=== PATIENT | female | born 1945 | race Caucasian/White ===

== ENCOUNTER 2016-11-06 02:36 | Emergency (ER) | payer OTHER ==
[~2016-11-06] VITALS: Ht 149.9 cm; Wt 66.7 kg
[~2016-11-06 02:36] MED LIST: ALBU1AER9 PO; ARMOUR THYROID PO; ASPCH81X PO; CALC12502 PO; FENO145T26 PO; LANTANOPROST OPB; PRM/3 PO; PROG200C8 PO; SIMV20TA2 PO; VITAMIN D3 PO
[2016-11-06 02:45] VITALS: TEMP 36.9; Ht 149.9 cm; Wt 66.7 kg
--- NOTE | 2016-11-06 03:20 | EMERGENCY ROOM VISIT NOTE ---
History Report prepared by Alesha: Grace Gonzalez Under the Supervision of: Dr. Rafael Ag M.D. First contact with patient: 02:49 Chief Complaint: HYPERTENSION Stated Complaint: HIGH BLOOD PRISSURE 198/117 History of Present Illness The patient is a 71 year old female who presents to the Emergency Room with complaints of persistent hypertension for the past several hours. She is accompanied by her . She reports around 2130 last night, she checked her BP at home and it was 156/95. She tried to go to sleep, but woke up early in the morning and rechecked her BP and it was 180/100. Around 0200 she woke up again and it was 198/117. Since it was continuing to rise, she asked her to bring her to the ED. She is on daily medications for a history of hypertension and states she took them yesterday morning as scheduled. The patient states she also "just doesn't feel right". She reports she has been "shaking", which she last experienced when she had a , and she thinks was from anxiety. She denies any headache or instability with walking. She does admit to some recent salty meals with eating [employer] and sausage in the past few days. She admits to some abdominal discomfort earlier, but states it has mostly resolved. She no longer has her gallbladder. Source of History: patient Onset: past several hours Position: other (global) Timing: other (persistent) Modifying Factors (Worsening): eating (recent salty meals) Associated Symptoms: + abdominal pain, No headache Review of Systems See HPI for pertinent positives & negatives. A total of 10 systems reviewed and were otherwise negative. Past Medical & Surgical Medical Problems: (1) Hypertension Surgical Problems: (1) Previous delivery, delivered Social History Smoking Status: Former Smoker Alcohol Use: none Drug Use: none Marital Status: Housing Status: lives with family Occupation Status: retired Current/Historical Medications Scheduled Amlodipine (Norvasc), 2.5 MG PO DAILY Aspirin (Aspirin Ec), 81 MG PO DAILY Calcium W/ Vitamins D & K (Viactiv), 1 TAB PO DAILY Cholecalciferol (Vitamin D3), 5,000 UNIT PO 5XWK Latanoprost (Xalatan 0.005% Oph Pennie), 1 DROPS OPB HS Levothyroxine Sodium (Levothyroxine Sodium), 50 MCG PO DAILY Metoprolol Succinate (Metoprolol Succinate ER), 25 MG PO DAILY Scheduled PRN Albuterol Hfa (Ventolin Hfa), 2 PUFFS INH Q6H PRN for SOB/Wheezing Estrogens, Conjugated (Premarin), 1 APPLN PV 3XWK PRN for IRRITATION Allergies Coded Allergies: Adhesives (Verified Allergy, Mild, RASH, 11/06/16) Physical Exam Vital Signs Date Time Temp Pulse Resp B/P Pulse Ox O2 Delivery O2 Flow Rate FiO2 11/06/16 04:28 88 21 202/145 95 11/06/16 03:21 Room Air 11/06/16 03:21 100 11/06/16 03:21 Room Air 11/06/16 02:45 36.9 108 22 218/107 96 Room Air Physical Exam GENERAL: Patient is a healthy-appearing well-nourished HEAD: Normocephalic atraumatic EYES: Ocular movements intact pupils equal and react to light OROPHARYNX mucous membranes are moist no exudates present no erythema or edema present NECK: Supple no nuchal rigidity CHEST: Good equal expansion LUNGS: Clear and equal to auscultation CARDIAC: Normal S1 and S2 ABDOMEN: Soft nontender no guarding BACK: No CVA tenderness EXTREMITIES: No pain upon palpation normal muscle strength in all groups no clubbing cyanosis or edema NEURO: Patient is following commands is answering questions appropriately. Alert and oriented x3 Cranial Nerves 2-12 grossly intact Medical Decision & Procedures ER Provider Diagnostic Interpretation: This X-Ray was reviewed and interpreted by myself and the radiologist. CHEST X-RAY, 1 VIEW No evidence of pneumonia, congestion or pneumothorax. Laboratory Results 11/06/16 03:20 Red Blood Count 5.25, Mean Corpuscular Volume 87.2, Mean Corpuscular Hemoglobin 29.5, Mean Corpuscular Hemoglobin Concent 33.8, Mean Platelet Volume 11.0, Neutrophils (%) (Auto) 48.3, Lymphocytes (%) (Auto) 37.1, Monocytes (%) (Auto) 8.7, Eosinophils (%) (Auto) 4.8, Basophils (%) (Auto) 0.9, Neutrophils # (Auto) 4.16, Lymphocytes # (Auto) 3.20, Monocytes # (Auto) 0.75, Eosinophils # (Auto) 0.41, Basophils # (Auto) 0.08 11/06/16 03:20 Test 11/06/16 03:20 White Blood Count 8.62 K/uL (4.8-10.8) Red Blood Count 5.25 M/uL (4.2-5.4) Hemoglobin 15.5 g/dL (12.0-16.0) Hematocrit 45.8 % (37-47) Mean Corpuscular Volume 87.2 fL (80-100) Mean Corpuscular Hemoglobin 29.5 pg (25-34) Mean Corpuscular Hemoglobin Concent 33.8 g/dl (32-36) Platelet Count 241 K/uL (130-400) Mean Platelet Volume 11.0 fL (7.4-10.4) Neutrophils (%) (Auto) 48.3 % Lymphocytes (%) (Auto) 37.1 % Monocytes (%) (Auto) 8.7 % Eosinophils (%) (Auto) 4.8 % Basophils (%) (Auto) 0.9 % Neutrophils # (Auto) 4.16 K/uL (1.4-6.5) Lymphocytes # (Auto) 3.20 K/uL (1.2-3.4) Monocytes # (Auto) 0.75 K/uL (0.11-0.59) Eosinophils # (Auto) 0.41 K/uL (0-0.5) Basophils # (Auto) 0.08 K/uL (0-0.2) RDW Standard Deviation 45.5 fL (36.4-46.3) RDW Coefficient of Variation 14.2 % (11.5-14.5) Immature Granulocyte % (Auto) 0.2 % Immature Granulocyte # (Auto) 0.02 K/uL (0.00-0.02) Prothrombin Time 10.0 SECONDS (9.0-12.0) Prothromb Time International Ratio 0.9 (0.9-1.1) Activated Partial Thromboplast Time 25.0 SECONDS (21.0-31.0) Partial Thromboplastin Ratio 1.0 Urine Color YELLOW Urine Appearance CLEAR (CLEAR) Urine pH 5.5 (4.5-7.5) Urine Specific [place] 1.006 (1.000-1.030) Urine Protein NEG (NEG) Urine Glucose (UA) NEG (NEG) Urine Ketones NEG (NEG) Urine Occult Blood NEG (NEG) Urine Nitrite NEG (NEG) Urine Bilirubin NEG (NEG) Urine Urobilinogen NEG (NEG) Urine Leukocyte Esterase NEG (NEG) Anion Gap 11.0 mmol/L (3-11) Est Creatinine Clear Calc Drug Dose 60.4 ml/min Estimated GFR () 98.3 Estimated GFR (Non- 84.9 BUN/Creatinine Ratio 16.4 (10-20) Calcium Level 9.0 mg/dl (8.5-10.1) Total Bilirubin 1.5 mg/dl (0.2-1) Direct Bilirubin 0.3 mg/dl (0-0.2) Aspartate Amino Transf (AST/SGOT) 34 U/L (15-37) Alanine Aminotransferase (ALT/SGPT) 62 U/L (12-78) Alkaline Phosphatase 140 U/L (45-117) Total Protein 8.5 gm/dl (6.4-8.2) Albumin 4.1 gm/dl (3.4-5.0) Lipase 105 U/L (73-393) Thyroid Stimulating Hormone (TSH) 3.630 uIu/ml (0.300-4.500) Chemistry Specimen Hemolysis Labs reviewed by ED physician. ECG Indication: other (hypertension) Rate (beats per minute): 107 Rhythm: sinus tachycardia Findings: no acute ischemic change, no ectopy ED Course 0251: Past medical records reviewed. The patient was evaluated in room A10. A complete history and physical examination was performed. 0420: I reevaluated the patient. She is feeling much better. I discussed her results and discharge instructions and she verbalized complete understanding and agreement. Medical Decision Prior records/ancillary studies reviewed regarding the history above. Triage Nursing notes reviewed. Additional history obtained from the family. The patient's history was concerning for hypertension. Differential diagnosis: Etiologies such as benign hypertension, hypertensive emergency, cardiovascular pathology, pheochromocytoma, electrolyte abnormality, renal disease, endorgan damage, as well as others were entertained. This is a 71-year-old female who presents emergency department complaining of high blood pressure. The patient woke up tonight to check her blood pressure and found it to be elevated. She then repeated several hours later in the blood pressure has been increasing with frequency. Despite being high here she denies any complaints including headache dizziness or chest pain. Based on the fact that the patient is asymptomatic I feel she can be safely discharged home with follow-up with her primary care physician. The patient does admit to eating a number saltine meals lately and I believe this may have contributed to her blood pressure issues. Patient was in agreement with the treatment plan. Impression Primary Impression: Hypertension Scribe Attestation The scribe's documentation has been prepared under my direction and personally reviewed by me in its entirety. I confirm that the note above accurately reflects all work, treatment, procedures, and medical decision making performed by me. Departure Information Dispostion Home / Self-Care Referrals Omid Rodriguez M.D. (PCP) Patient Instructions ED Hypertension Poss, Hypertension Control, Hypertension Dc, My [facility] Additional Instructions You have been examined and treated today on an emergency basis only. This is not a substitute for, or an effort to provide, complete comprehensive medical care. It is impossible to recognize and treat all injuries or illnesses in a single emergency department visit. It is therefore important that you follow up closely with Dr Rodriguez. Call as soon as possible for an appointment. Thank you for your time and consideration. I look forward to speaking with you again soon. Please don't hesitate to call us if you have any questions. Problem Qualifiers Primary Impression: Hypertension Hypertension type: essential hypertension Qualified Codes: I10 - Essential ( primary) hypertension
[2016-11-06 03:33] LABS: BASO % 0.9 %; BASO ABS # 0.08 K/uL (0-0.2); COMPLETE YES; EOS % 4.8 %; HEMATOCRIT 45.8 % (37-47); IG% 0.2 %; LYMPH % 37.1 %; MEAN CELL VOLUME 87.2 fL (80-100); MEAN CORPUSCULAR HEMOGLOBIN 29.5 pg (25-34); MEAN CORPUSCULAR HGB CONC 33.8 g/dl (32-36); MONO % 8.7 %; NEUT % 48.3 %; PLATELET COUNT 241 K/uL (130-400); RED BLOOD COUNT 5.25 M/uL (4.2-5.4); URINE APPEARANCE CLEAR (CLEAR); URINE BILIRUBIN NEG (NEG); URINE COLOR YELLOW; URINE NITRITE NEG (NEG); URINE PH 5.5 (4.5-7.5); URINE SPECIFIC GRAVITY 1.006 (1.000-1.030); UROBILINOGEN NEG (NEG); WHITE BLOOD COUNT 8.62 K/uL (4.8-10.8)
[2016-11-06 03:42] LABS: INR 0.9 (0.9-1.1)
[2016-11-06 03:51] LABS: BUN/CREATININE RATIO 16.4 (10-20); CREATININE 0.72 mg/dl (0.60-1.20)
[2016-11-06 04:00] LABS: MANUAL MICROSCOPIC REQUIRED? NO; REVIEW REQ? NO
[2016-11-06 04:01] LABS: THYROID STIMULATING HORMONE 3.63 uIu/ml (0.300-4.500)
[2016-11-06] MEDS ORDERED: LEVO50TA6 PO (04:24)
[2016-11-06] MEDS ORDERED: TPRSR/25 PO (04:24)
[2016-11-06] MEDS ORDERED: AMLO2.5T PO (04:25)
[2016-11-06] MEDS ORDERED: ASPI81TA28 PO (04:25)
[2016-11-06] MEDS ORDERED: CHOL1TAB46 PO (04:26)
[2016-11-06] MEDS ORDERED: CALC8.5C PO (04:27)
[2016-11-06] MEDS ORDERED: LATA0.5S OPB (04:27)
[2016-11-06] MEDS ORDERED: VNTHFA/IN INH (04:27)
[2016-11-06 04:28] VITALS: BP 202/145; PULSE 88; O2SAT 95
[2016-11-06] MEDS ORDERED: PRMVC PV (04:28)
--- NOTE | 2016-11-06 06:36 | DIAGNOSTIC IMAGING REPORT ---
CHEST ONE VIEW PORTABLE CLINICAL HISTORY: severe hypertension COMPARISON STUDY: No previous studies for comparison. FINDINGS: The cardiac and mediastinal contours are normal. There is no evidence of focal pulmonary consolidation. There is no evidence of failure. No pleural effusions are visualized.[ There are minor left basilar atelectatic changes IMPRESSION: No active disease in the chest. Electronically signed by: Bg Reddy M.D. 11/06/2016 6:35 AM Dictated Date/Time: 11/06/2016 6:35 AM
== END 2016-11-06 04:28 | disposition home or self-care (01) ==
LOC: C.EDB 02:38 → C.EDA 04:28
DX: I10 Essential (primary) hypertension (principal); Z87.891 Personal history of nicotine dependence; Z79.82 Long term (current) use of aspirin; Z79.899 Other long term (current) drug therapy

== ENCOUNTER → 2016-12-24 | Outpatient (CLI) | payer OTHER ==
[~2016-12-24] MED LIST changes: -ALBU1AER9 PO; +AMLO2.5T PO; -ARMOUR THYROID PO; -ASPCH81X PO; +ASPI81TA28 PO; -CALC12502 PO; +CALC8.5C PO; +CHOL1TAB46 PO; -FENO145T26 PO; -LANTANOPROST OPB; +LATA0.5S OPB; +LEVO50TA6 PO; -PRM/3 PO; +PRMVC PV; -PROG200C8 PO; -SIMV20TA2 PO; +TPRSR/25 PO; -VITAMIN D3 PO; +VNTHFA/IN INH
--- NOTE | 2016-12-24 16:45 | MAMMOGRAPHY REPORT ---
BILATERAL DIGITAL SCREENING MAMMOGRAM WITH CAD: 12/24/2016 CLINICAL HISTORY: Routine screening. Patient has no complaints. TECHNIQUE: Bilateral CC and MLO views were obtained. Current study was also evaluated with a Comput er Aided Detection (CAD) system. COMPARISON: Comparison is made to exams dated: 12/19/2015 mammogram, 12/15/2014 mammogram, 11/20/2013 mammogram, 11/18/2012 mammogram, 11/13/2011 mammogram, and 11/09/2010 mammogram - [facility]. BREAST COMPOSITION: The tissue of both breasts is heterogeneously dense, which may obscure small ma sses. FINDINGS: Grouped microcalcifications in the lower inner quadrant of the right breast appear similar dating back to 11/20/2013 and with 3 years of stability are most likely benign. No new suspicious mass, architectural distortion or cluster of new, suspicious microcalcifications is seen. IMPRESSION: ACR BI-RADS CATEGORY 1: NEGATIVE There is no mammographic evidence of malignancy. A 1 year screening mammogram is recommended. The p atient will receive written notification of the results. Approximately 10% of breast cancers are not detected with mammography. A negative mammographic repor t should not delay biopsy if a clinically suggestive mass is present. Verona Bauman M.D. ay/:12/24/2016 16:09:44 Business Development Officer: Jihan UNDERWOOD)(M), [facility] letter sent: Normal 1/2 BI-RADS Code: ACR BI-RADS Category 1: Negative
== END | disposition home or self-care (01) ==
LOC: C.MAMM 08:51
PROVIDERS: ATTEND Family Medicine
DX: Z12.31 Encounter for screening mammogram for malignant neoplasm of breast (principal)

== ENCOUNTER → 2017-12-25 | Outpatient (CLI) | payer OTHER ==
--- NOTE | 2017-12-25 15:29 | MAMMOGRAPHY REPORT ---
BILATERAL DIGITAL SCREENING MAMMOGRAM TOMOSYNTHESIS WITH CAD: 12/25/2017 CLINICAL HISTORY: Routine screening examination. TECHNIQUE: Breast tomosynthesis in addition to standard 2D mammography was performed. Current study was also evaluated with a Computer Aided Detection (CAD) system. COMPARISON: Comparison is made to exams dated: 12/19/2015 mammogram, 12/24/2016 mammogram, 11/20/2013 m ammogram, 12/15/2014 mammogram, 11/18/2012 mammogram, and 11/13/2011 mammogram - [facility]. BREAST COMPOSITION: The tissue of both breasts is heterogeneously dense, which may obscure small mas ses. FINDINGS: There is asymmetry of the size of the breasts, right greater than left, likely normal anato courtney variation. The glandular pattern is similar to prior mammograms. No obvious new mass, windows systems architect ural distortion or cluster of microcalcifications is seen. IMPRESSION: ACR BI-RADS CATEGORY 1: NEGATIVE There is no mammographic evidence of malignancy. A 1 year screening mammogram is recommended. The pa tient will receive written notification of the results. Approximately 10% of breast cancers are not detected with mammography. A negative mammographic report should not delay biopsy if a clinically suggestive mass is present. Verona Bauman M.D. ay/:12/25/2017 09:48:28 [place] Trawl Line: Dea FATIMA(Francia)(M), [facility] letter sent: Normal 1/2 BI-RADS Code: ACR BI-RADS Category 1: Negative
== END | disposition home or self-care (01) ==
LOC: C.MAMM 08:52
PROVIDERS: ATTEND Family Medicine
DX: Z12.31 Encounter for screening mammogram for malignant neoplasm of breast (principal)